=== PATIENT | female | born 1940 | race Caucasian/White ===

== ENCOUNTER 2017-03-27 20:49 | Inpatient (IN) | payer OTHER, MEDICAID ==
[~2017-03-27] VITALS: Ht 157.5 cm; Wt 73.9 kg
[2017-03-27 21:15] VITALS: BP 156/85
[2017-03-27 21:19] VITALS: BP 156/85
[2017-03-27] MEDS ORDERED: MAGNESIUM HYDROXIDE 30 ML UDC PO PRN (21:30)
[2017-03-27] MEDS ORDERED: LORAZEPAM 0.5 MG TABLET PO PRN (21:30)
[2017-03-27] MEDS ORDERED: MAG HYDROX/AL HYDROX/SIMETH 30 ML UDC PO PRN (21:30)
[2017-03-27] MEDS ORDERED: ACETAMINOPHEN 325 MG TABLET PO PRN (21:30)
[2017-03-27] MEDS ORDERED: TEMAZEPAM 7.5 MG CAPSULE PO PRN (21:30)
[2017-03-27] MEDS ORDERED: MONT10TA22 PO (22:00)
[2017-03-27] MEDS ORDERED: SIMV80TA2 PO (22:00)
[2017-03-27] MEDS ORDERED: ASPI-991 PO (22:00)
[2017-03-27] MEDS ORDERED: FENO200C PO (22:00)
[2017-03-27] MEDS ORDERED: METO-302 PO (22:00)
[2017-03-27] MEDS ORDERED: INSU300I SQ (22:00)
[2017-03-27] MEDS ORDERED: CANA1TAB4 PO (22:00)
[2017-03-27] MEDS ORDERED: ESCI20TA PO (22:00)
[2017-03-27] MEDS ORDERED: PANT40TA4 PO (22:00)
[2017-03-27] MEDS ORDERED: TEMA30CA PO (22:00)
[2017-03-27] MEDS ORDERED: MAGN400T6 PO (22:00)
[2017-03-27] MEDS ORDERED: LEVO25TA7 PO (22:00)
[2017-03-27] MEDS ORDERED: GLIM4TAB PO (22:00)
[2017-03-27] MEDS ORDERED: FURO-144 PO (22:00)
[2017-03-27] MEDS ORDERED: MELO-264 PO (22:00)
[2017-03-27] MEDS ORDERED: CLOP75TA2 PO (22:00)
[2017-03-27] MEDS ORDERED: RIVA10TA PO (22:00)
[2017-03-27] MEDS ORDERED: ALBUTEROL FS 2.5 MG/3 ML VIAL.NEB NEB PRN (23:00)
[2017-03-27] MEDS ORDERED: DEXTROSE 50%-WATER 50 ML DISP.SYRIN IV PRN (23:00)
[2017-03-28 08:00] VITALS: BP 102/51
[2017-03-28] MEDS: BLOOD SUGAR DIAGNOSTIC 1 EACH STRIP IN SCH ×4 (08:39→21:39)
[2017-03-28] MEDS: INSULIN REGULAR, HUMAN 100 UNIT/ML 3 ML VIAL SQ PRN ×4 (08:40→21:41)
[2017-03-28] MEDS: ASPIRIN EC 81 MG TABLET.DR PO SCH (08:41)
[2017-03-28] MEDS: GLIMEPIRIDE 4 MG TABLET PO SCH ×2 (08:41→16:49)
[2017-03-28] MEDS: MAGNESIUM OXIDE 400 MG TABLET PO SCH (08:41)
[2017-03-28] MEDS: CLOPIDOGREL BISULFATE 75 MG TABLET PO SCH (08:41)
[2017-03-28] MEDS: PANTOPRAZOLE 40 MG TABLET.DR PO SCH (08:41)
[2017-03-28] MEDS: LEVOTHYROXINE SODIUM 175 MCG TABLET PO SCH (08:42)
[2017-03-28] MEDS: FUROSEMIDE 40 MG TABLET PO SCH ×2 (08:47→16:49)
[2017-03-28] MEDS: METOPROLOL SUCCINATE 25 MG TAB.SR.24H PO SCH (08:48)
[2017-03-28 11:38] LABS: BASOPHILS % (AUTO) 0.5 % (0.0-2.0); EOSINOPHILS # (AUTO) 0.1 /CMM (0.0-0.7); EOSINOPHILS % (AUTO) 1.8 % (0.0-6.0); HEMATOCRIT 37 % (33-45); HEMOGLOBIN 12.5 g/dL (11.5-14.8); LYMPHOCYTES # (AUTO) 1.6 /CMM (0.8-4.8); LYMPHOCYTES % (AUTO) 26.1 % (20.0-44.0); MEAN CORPUSCULAR HEMOGLOBIN 29 PG (26.0-33.0); MEAN CORPUSCULAR HGB CONC 34 g/dl (31.0-36.0); MEAN CORPUSCULAR VOLUME 87 fL (82-100); MONOCYTES # (AUTO) 0.4 /CMM (0.1-1.30); MONOCYTES % (AUTO) 6.2 % (2.0-12.0); NEUTROPHILS # (AUTO) 4.1 /CMM (1.8-8.9); NEUTROPHILS % (AUTO) 65.4 % (43.0-81.0); PLATELET COUNT (AUTO) 178 /CMM (150-450); RDW COEFFICIENT OF VARIATION 15.7 (11.5-15.0); RED BLOOD CELL COUNT(AUTO) 4.27 MIL/uL (4.0-5.2); WHITE BLOOD COUNT (AUTO) 6.3 K/uL (4.3-11.0)
[2017-03-28 12:18] LABS: ALANINE AMINOTRANSFERASE 25 U/L (12-78); ALBUMIN 3.8 g/dL (3.4-5.0); ALKALINE PHOSPHATASE 33 U/L (46-116); ASPARTATE AMINOTRANSFERASE 25 U/L (15-37); BILIRUBIN,TOTAL 0.5 mg/dL (0.2-1.0); CARBON DIOXIDE 24 mmol/L (21-32); CHLORIDE 104 mmol/L (98-107); CREATININE 0.9 mg/dL (0.6-1.3); GLUCOSE 204 mg/dL (74-106); MAGNESIUM 2.2 mg/dL (1.8-2.4); SODIUM SERUM 139 mmol/L (136-145); TOTAL PROTEIN, SERUM 7.2 g/dL (6.4-8.2); UREA NITROGEN, BLOOD 26 mg/dL (7-18)
[2017-03-28] MEDS: SERTRALINE HCL 25 MG TABLET PO SCH (13:06)
[2017-03-28 13:14] LABS: CHOLESTEROL 172 mg/dL (<200); HDL CHOLESTEROL 37 mg/dL (40-60); LDL 104 mg/dL (0-99); TRIGLYCERIDES 125 mg/dL (30-150)
[2017-03-28 14:07] LABS: THYROID STIMULATING HORMONE 0.213 uIU/mL (0.358-3.74)
[2017-03-28 16:00] VITALS: BP 119/70
[2017-03-28 20:00] VITALS: BP 136/86
[2017-03-28] MEDS: MONTELUKAST SODIUM (10MG) 10 MG TABLET PO SCH (21:39)
[2017-03-29 08:00] VITALS: BP 108/56
[2017-03-29] MEDS: INSULIN REGULAR, HUMAN 100 UNIT/ML 3 ML VIAL SQ PRN ×4 (08:01→21:36)
[2017-03-29] MEDS: SERTRALINE HCL 25 MG TABLET PO SCH (08:56)
[2017-03-29] MEDS: BLOOD SUGAR DIAGNOSTIC 1 EACH STRIP IN SCH ×4 (08:56→21:07)
[2017-03-29] MEDS: CLOPIDOGREL BISULFATE 75 MG TABLET PO SCH (08:56)
[2017-03-29] MEDS: FUROSEMIDE 40 MG TABLET PO SCH ×2 (08:56→16:44)
[2017-03-29] MEDS: LEVOTHYROXINE SODIUM 175 MCG TABLET PO SCH (08:56)
[2017-03-29] MEDS: ASPIRIN EC 81 MG TABLET.DR PO SCH (08:56)
[2017-03-29] MEDS: MAGNESIUM OXIDE 400 MG TABLET PO SCH (08:56)
[2017-03-29] MEDS: PANTOPRAZOLE 40 MG TABLET.DR PO SCH (08:56)
[2017-03-29] MEDS: GLIMEPIRIDE 4 MG TABLET PO SCH ×2 (08:57→16:44)
[2017-03-29] MEDS: METOPROLOL SUCCINATE 25 MG TAB.SR.24H PO SCH (08:57)
[2017-03-29 15:52] VITALS: BP 113/61
[2017-03-29 20:21] VITALS: BP 111/52
[2017-03-29] MEDS: MONTELUKAST SODIUM (10MG) 10 MG TABLET PO SCH (21:07)
[2017-03-30 08:00] VITALS: BP 104/59
[2017-03-30] MEDS: PANTOPRAZOLE 40 MG TABLET.DR PO SCH (08:16)
[2017-03-30] MEDS: CLOPIDOGREL BISULFATE 75 MG TABLET PO SCH (08:16)
[2017-03-30] MEDS: LEVOTHYROXINE SODIUM 175 MCG TABLET PO SCH (08:16)
[2017-03-30] MEDS: GLIMEPIRIDE 4 MG TABLET PO SCH ×2 (08:16→16:08)
[2017-03-30] MEDS: ASPIRIN EC 81 MG TABLET.DR PO SCH (08:16)
[2017-03-30] MEDS: SERTRALINE HCL 25 MG TABLET PO SCH (08:16)
[2017-03-30] MEDS: MAGNESIUM OXIDE 400 MG TABLET PO SCH (08:17)
[2017-03-30] MEDS: FUROSEMIDE 40 MG TABLET PO SCH ×2 (08:18→16:07)
[2017-03-30] MEDS: METOPROLOL SUCCINATE 25 MG TAB.SR.24H PO SCH (08:18)
[2017-03-30] MEDS: BLOOD SUGAR DIAGNOSTIC 1 EACH STRIP IN SCH ×4 (08:19→22:01)
[2017-03-30] MEDS: INSULIN REGULAR, HUMAN 100 UNIT/ML 3 ML VIAL SQ PRN ×4 (08:25→22:04)
[2017-03-30 16:00] VITALS: BP 116/61
[2017-03-30 19:39] VITALS: BP 103/59
[2017-03-30] MEDS: MONTELUKAST SODIUM (10MG) 10 MG TABLET PO SCH (22:02)
[2017-03-31 07:07] LABS: BASOPHILS % (AUTO) 0.3 % (0.0-2.0); EOSINOPHILS # (AUTO) 0.2 /CMM (0.0-0.7); EOSINOPHILS % (AUTO) 2.7 % (0.0-6.0); HEMATOCRIT 36 % (33-45); HEMOGLOBIN 12.3 g/dL (11.5-14.8); LYMPHOCYTES # (AUTO) 1.3 /CMM (0.8-4.8); LYMPHOCYTES % (AUTO) 21.6 % (20.0-44.0); MEAN CORPUSCULAR HEMOGLOBIN 30 PG (26.0-33.0); MEAN CORPUSCULAR HGB CONC 34 g/dl (31.0-36.0); MEAN CORPUSCULAR VOLUME 87 fL (82-100); MONOCYTES # (AUTO) 0.6 /CMM (0.1-1.30); MONOCYTES % (AUTO) 9.4 % (2.0-12.0); PLATELET COUNT (AUTO) 169 /CMM (150-450); RDW COEFFICIENT OF VARIATION 15.1 (11.5-15.0); RED BLOOD CELL COUNT(AUTO) 4.16 MIL/uL (4.0-5.2); WHITE BLOOD COUNT (AUTO) 6.1 K/uL (4.3-11.0)
[2017-03-31 07:28] LABS: CALCIUM, SERUM 8.9 mg/dL (8.5-10.1); CARBON DIOXIDE 27 mmol/L (21-32); CHLORIDE 103 mmol/L (98-107); CREATININE 0.8 mg/dL (0.6-1.3); GLUCOSE 228 mg/dL (74-106); MAGNESIUM 2.1 mg/dL (1.8-2.4); PHOSPHORUS 2.7 mg/dL (2.5-4.9); POTASSIUM 3.9 mmol/L (3.5-5.1); SODIUM SERUM 141 mmol/L (136-145); UREA NITROGEN, BLOOD 17 mg/dL (7-18)
[2017-03-31 08:00] VITALS: BP 111/59
[2017-03-31] MEDS: MAGNESIUM OXIDE 400 MG TABLET PO SCH (08:14)
[2017-03-31] MEDS: ASPIRIN EC 81 MG TABLET.DR PO SCH (08:14)
[2017-03-31] MEDS: GLIMEPIRIDE 4 MG TABLET PO SCH (08:14)
[2017-03-31] MEDS: LEVOTHYROXINE SODIUM 175 MCG TABLET PO SCH (08:14)
[2017-03-31] MEDS: PANTOPRAZOLE 40 MG TABLET.DR PO SCH (08:14)
[2017-03-31 08:15] VITALS: BP 111/59
[2017-03-31] MEDS: BLOOD SUGAR DIAGNOSTIC 1 EACH STRIP IN SCH ×2 (08:15→12:00)
[2017-03-31] MEDS: METOPROLOL SUCCINATE 25 MG TAB.SR.24H PO SCH (08:15)
[2017-03-31] MEDS: SERTRALINE HCL 25 MG TABLET PO SCH (08:15)
[2017-03-31] MEDS: CLOPIDOGREL BISULFATE 75 MG TABLET PO SCH (08:15)
[2017-03-31] MEDS: FUROSEMIDE 40 MG TABLET PO SCH (08:15)
[2017-03-31] MEDS: INSULIN REGULAR, HUMAN 100 UNIT/ML 3 ML VIAL SQ PRN (08:20)
[2017-03-31] MEDS ORDERED: CLOTRIMAZOLE 1% 15 GM TUBE TP SCH (10:00)
== END 2017-03-31 12:10 | disposition home or self-care (01) | DRG 885 ==
LOC: GPS 20:49
PROVIDERS: ADMIT Internal Medicine; ATTEND Psychiatry & Neurology Psychiatry
DX: F33.2 Major depressive disorder, recurrent severe without psychotic features (principal); E11.65 Type 2 diabetes mellitus with hyperglycemia; R45.851 Suicidal ideations; J44.9 Chronic obstructive pulmonary disease, unspecified; E03.9 Hypothyroidism, unspecified; I10 Essential (primary) hypertension; Z87.891 Personal history of nicotine dependence; R79.89 Other specified abnormal findings of blood chemistry; Z95.0 Presence of cardiac pacemaker; M19.90 Unspecified osteoarthritis, unspecified site; I05.0 Rheumatic mitral stenosis
CPT/HCPCS: 36415; 71010-TC; 80048-TC; 80053-TC; 80061-TC; 82962-TC; 83735-TC; 84100-TC; 84300-TC; 84443-TC; 85025-TC; 87081-TC; 93307-TC; J1815; Z7610